=== PATIENT | female | born 1995 | race Caucasian/White ===

== ENCOUNTER → 2017-11-10 | Outpatient (CLI) | payer OTHER ==
[~2017-11-10] MED LIST: AMOX500 PO; CRUTCH USE; IBUP800; Verotin-Gr Cap1 EACH PO
== END ==
LOC: LAB SHORT 16:09 → LAB 16:09
DX: Z34.83 Encounter for supervision of other normal pregnancy, third trimester (principal); Z3A.35 35 weeks gestation of pregnancy
CPT/HCPCS: 87081; 87653

== ENCOUNTER 2018-01-22 10:44 | Day surgery (SDC) | payer OTHER ==
[~2018-01-22] VITALS: Ht 170.2 cm; Wt 90.5 kg
[~2018-01-22 10:44] MED LIST changes: +ACYC400 PO; +Ferrous Sulfat325 MG PO
== END 2018-01-22 14:37 | disposition home or self-care (01) ==
LOC: ORSCSDS 10:44
PROVIDERS: Obstetrics & Gynecology
PROC: 0UT74ZZ Resection of Bilateral Fallopian Tubes, Percutaneous Endoscopic Approach (ICD-10-PCS; principal; 2018-01-22 12:00)
DX: Z30.2 Encounter for sterilization (principal); Z87.891 Personal history of nicotine dependence
CPT/HCPCS: 88302; J0171; J0690; J2250; J2795; J3010; J7120

== ENCOUNTER → 2019-07-13 | Outpatient (CLI) | payer OTHER | END | disposition home or self-care (01) | LOC: LAB SHORT 16:25 → LAB 16:25 | PROVIDERS: Obstetrics & Gynecology | DX: Z12.4 Encounter for screening for malignant neoplasm of cervix (principal) | CPT/HCPCS: 87624; G0123 ==

== ENCOUNTER → 2021-05-25 | Outpatient (CLI) | payer OTHER ==
[2021-05-25 15:19] LABS: BASOPHILS ABSOLUTE AUTO 0.03 K/mm3 (0.00-0.23); BASOPHILS PERCENT AUTO 1 % (0-2); EOSINOPHILS ABSOLUTE AUTO 0.04 K/mm3 (0.00-0.68); EOSINOPHILS PERCENT AUTO 1 % (0-6); Hematocrit 35.5 % (33.0-51.0); Hemoglobin 12.1 g/dL (11.5-16.0); IMMATURE GRAN ABSOLUTE AUTO 0.01 K/mm3 (0.00-0.10); IMMATURE GRAN PERCENT AUTO 0 % (0-1); LYMPHOCYTES ABSOLUTE AUTO 2.27 K/mm3 (0.84-5.20); LYMPHOCYTES PERCENT AUTO 46 % (21-46); MONOCYTES ABSOLUTE AUTO 0.47 K/mm3 (0.16-1.47); MONOCYTES PERCENT AUTO 10 % (4-13); Mean Corpuscular HGB 31.5 pg (26.0-34.0); Mean Corpuscular HGB Conc 34.1 g/dL (31.5-36.5); Mean Corpuscular Volume 92 fL (80-100); Mean Platelet Volume 8.9 fL (9.1-12.4); NEUTROPHILS ABSOLUTE AUTO 2.07 K/mm3 (1.96-9.15); NEUTROPHILS PERCENT AUTO 42 % (41-73); Platelet Count 213 K/mm3 (150-400); RDW Coefficient Variation 12.9 % (11.7-14.2); Red Blood Cell Count 3.84 M/mm3 (3.80-5.20); White Blood Cell Count 4.89 K/mm3 (4.00-11.30)
[2021-05-25 15:42] LABS: Alanine Aminotransfer (ALT/SGP 32 U/L (12-78); Albumin, Blood 3.6 g/dL (3.4-5.0); Albumin/Globulin Ratio 1.1 (0.8-1.8); Alk Phos 80 U/L (40-126); Anion Gap 9 mmol/L (6-16); Aspartate Aminotrans (AST/SGOT 22 U/L (12-37); Bilirubin, Total 0.3 mg/dL (0.1-1.0); Blood Urea Nitrogen 11 mg/dL (8-24); Bun/Creatinine Ratio 11.7 (12.0-20.0); CO2, Blood 27 mmol/L (21-32); Calcium, Blood 8.8 mg/dL (8.5-10.1); Chloride, Blood 103 mmol/L (98-108); Creatinine, Blood 0.94 mg/dL (0.40-1.00); Globulin, Blood 3.2 g/dL (2.2-4.0); Glomerular Filtration Rate >60 (60-); Glucose, Blood 109 mg/dL (70-99); Potassium, Blood 4.3 mmol/L (3.5-5.5); Sodium, Blood 139 mmol/L (136-145); Total Protein, Blood 6.8 g/dL (6.4-8.2)
== END | disposition home or self-care (01) ==
LOC: LAB SHORT 15:13
PROVIDERS: Physician Assistant
DX: N92.0 Excessive and frequent menstruation with regular cycle (principal); R53.83 Other fatigue
CPT/HCPCS: 80053; 84443; 85025

== ENCOUNTER 2021-11-12 04:20 | Emergency (ER) | payer OTHER ==
[~2021-11-12] VITALS: Ht 170.2 cm; Wt 74.8 kg
== END 2021-11-12 08:27 | disposition home or self-care (01) ==
LOC: ER 04:20
DX: S71.112A Laceration without foreign body, left thigh, initial encounter (principal); F17.210 Nicotine dependence, cigarettes, uncomplicated; Z79.899 Other long term (current) drug therapy; W26.0XXA Contact with knife, initial encounter
CPT/HCPCS: 90714